=== PATIENT | male | born 1955 | race Hispanic/Latino ===

== ENCOUNTER 2017-02-16 08:57 | Emergency (ER) | payer OTHER ==
[2017-02-16 09:06] VITALS: BP 154/92; PULSE 74; RESP 16; TEMP 97.9; O2SAT 98; BMI 32.5
--- NOTE | 2017-02-16 10:10 | RAD ---
HISTORY: cough, chest pain COMPARISON: Chest x-ray performed 10/18/16 TECHNIQUE: Chest PA and lateral FINDINGS: LUNGS: Mild retrocardiac atelectasis ; infiltrate cannot be excluded in the proper clinical setting. Please note that chest x-ray has limited sensitivity for the detection of pulmonary masses. PLEURA: No significant pleural effusion identified. No definite pneumothorax . CARDIOVASCULAR: Heart size appears within normal limits. Atherosclerotic calcifications of the aorta. OSSEOUS STRUCTURES: No acute osseous abnormality identified. VISUALIZED UPPER ABDOMEN: Elevation of the right hemidiaphragm. OTHER FINDINGS: None. IMPRESSION: Mild retrocardiac atelectasis ; infiltrate cannot be excluded in the proper clinical setting. Correlate clinically.
--- NOTE | 2017-02-16 10:24 | C.PDOC ---
History Of Present Illness The patient, a 61 y/o male, presnets to the ED for evaluation of a nonproductive cough which has been persistent for around 2 weeks. Patient states his symptoms are worse at night and cause trouble sleeping. Patient is agitated and defensive, stating his PMD has not done anything to treat his symptoms. Patient reports night sweats and denies fever, chills, headache, nausea, vomiting, and abdominal pain. Time Seen by Provider: 02/16/17 09:26 Chief Complaint (Nursing): Cough, Cold, Congestion History Per: Patient History/Exam Limitations: no limitations Onset/Duration Of Symptoms: Persistent, Other (2 weeks ) Current Symptoms Are (Timing): Still Present Additional History Per: Patient Past Medical History Reviewed: Historical Data, Nursing Documentation, Vital Signs Vital Signs: Last Vital Signs Temp 97.9 F 02/16/17 09:06 Pulse 74 02/16/17 09:06 Resp 16 02/16/17 09:06 BP 154/92 H 02/16/17 09:06 Pulse Ox 98 02/16/17 12:01 - Medical History PMH: Gastritis, HTN Denies: Chronic Kidney Disease Surgical History: No Surg Hx - [facility] Procedures ENDOSC POLYPECTOMY OF LG INTEST (01/23/15) OTHER SKIN & SUBQ I D (08/05/13) Family History: States: Unknown Family Hx - Social History Hx Tobacco Use: No Hx Alcohol Use: Yes Hx Substance Use: No - Immunization History Hx Tetanus Toxoid Vaccination: No Hx Influenza Vaccination: Yes (not sure) Hx Pneumococcal Vaccination: Yes (not sure) Review Of Systems Except As Marked, All Systems Reviewed And Found Negative. Constitutional: Positive for: Sweats. Negative for: Fever, Chills Respiratory: Positive for: Cough. Negative for: Sputum Gastrointestinal: Negative for: Nausea, Vomiting, Abdominal Pain Neurological: Negative for: Headache Physical Exam - Physical Exam Appears: Non-toxic, No Acute Distress Skin: Normal Color, Warm, Dry Head: Atraumatic, Normacephalic Eye(s): bilateral: Normal Inspection Nose: Other (+congestion of upper airway ) Oral Mucosa: Moist Throat: Normal, No Erythema, No Exudate Neck: Supple Chest: Symmetrical, No Deformity, No Tenderness Cardiovascular: Rhythm Regular, No Murmur Respiratory: Normal Breath Sounds, No Rales, No Rhonchi, No Wheezing Back: Normal Inspection, No Vertebral Tenderness, No Paraspinal Tenderness Extremity: Normal ROM, Capillary Refill (less than 2 seconds ) Neurological/Psych: Oriented x3, Normal Speech, Normal Cognition Gait: Steady ED Course And Treatment O2 Sat by Pulse Oximetry: 98 (on RA) Pulse Ox Interpretation: Normal - Other Rad CXR X-Ray: Interpreted by Me, Viewed By Me, Read By Radiologist Interpretation: Accession No. : [id number]. Patient Name / ID : CHE CUMMINGS / [id number]. Exam Date : 02/16/2017 09:42:02 ( Approved ). Study Comment : Sex / Age : M / 61Y. Creator : Darline Morales MD. Dictator : Darline Morales MD. Medical Artist : Sourcing Analyst : Darline Morales MD. Approver2 : Report Date : 02/16/2017 10:08:54. My Comment : . HISTORY: cough, chest pain. COMPARISON: Chest x-ray performed 10/18/16. TECHNIQUE: Chest PA and lateral. FINDINGS: LUNGS: Mild retrocardiac atelectasis ; infiltrate cannot be excluded in the proper clinical setting. Please note that chest x-ray has limited sensitivity for the detection of pulmonary masses. PLEURA: No significant pleural effusion identified. No definite pneumothorax . CARDIOVASCULAR: Heart size appears within normal limits. Atherosclerotic calcifications of the aorta. OSSEOUS STRUCTURES: No acute osseous abnormality identified. VISUALIZED UPPER ABDOMEN: Elevation of the right hemidiaphragm. OTHER FINDINGS: None. IMPRESSION: Mild retrocardiac atelectasis ; infiltrate cannot be excluded in the proper clinical setting. Correlate clinically. Medical Decision Making Medical Decision Making: Impression: 61y/o male with cough Plan: * CXR * reassess and disposition Progress Notes: CXR ordered, review shows atelectasis but cannot r/o infiltrate. On reassessment, patient is resting comfortably, showing no signs of distress, and is stable for discharge. Patient is advised to follow up with his PMD within 1-2 days for further evaluation. Disposition Counseled Patient/Family Regarding: Studies Performed, Diagnosis, Need For Followup, Rx Given - Disposition Referrals: [facility] at [facility] [Outside] Disposition: HOME/ ROUTINE Disposition Time: 10:22 Condition: STABLE Prescriptions: Azithromycin 1 tab PO DAILY #6 tab Benzonatate [Tessalon Perles] 200 mg PO TID #18 sgl Instructions: Upper Respiratory Infection (ED), Acute Bronchitis (ED) Forms: Work Excuse - Clinical Impression Clinical Impression: Influenza-like illness, Bronchiolitis - Scribe Statement The provider has reviewed the documentation as recorded by the Scribe (Tracee Cardenas) Provider Attestation: All medical record entries made by the Scribe were at my direction and personally dictated by me. I have reviewed the chart and agree that the record accurately reflects my personal performance of the history, physical exam, medical decision making, and the department course for this patient. I have also personally directed, reviewed, and agree with the discharge instructions and disposition.
== END 2017-02-16 10:31 | disposition home or self-care (01) ==
LOC: C.ER 08:57
DX: J11.1 Influenza due to unidentified influenza virus with other respiratory manifestations (principal)

== ENCOUNTER 2017-05-03 11:01 | Emergency (ER) | payer OTHER ==
[2017-05-03 11:14] VITALS: BMI 25.7
[2017-05-03] MEDS ORDERED: Sodium Chloride 0.9% 500 ML IV ONE ×2 (11:42→11:57)
[2017-05-03] MEDS ORDERED: Aluminum Hydroxide/Magnesium Hydroxide Susp (30 mL) PO STA (11:48)
[2017-05-03] MEDS ORDERED: Aluminum Hydroxide/Magnesium Hydroxide Susp (30 mL) ONE (11:58)
[2017-05-03 12:01] LABS: BASO % 0.7 % (0.0-2.0); EOS # 0.2 K/uL (0.0-0.7); EOS % 2.3 % (0.0-4.0); HEMOGLOBIN 14.9 g/dL (12.0-18.0); LYMPH # 1.6 K/uL (1.0-4.3); LYMPH % 23.7 % (20.0-40.0); MEAN CELL VOLUME 89.7 fL (80.0-94.0); MEAN CORPUSCULAR HEMOGLOBIN 29.7 pg (27.0-31.0); MEAN CORPUSCULAR HGB CONC 33.2 g/dL (33.0-37.0); MEAN PLATELET VOLUME 8.8 fL (7.2-11.7); MONO # 0.5 K/uL (0.0-0.8); MONO % 7.1 % (0.0-10.0); NEUT # 4.6 K/uL (1.8-7.0); NEUT % 66.2 % (50.0-75.0); NRBC % 0.1 % (0.0-2.0); WHITE BLOOD COUNT 6.9 K/uL (4.8-10.8)
--- NOTE | 2017-05-03 12:01 | C.PDOC ---
History Of Present Illness 61-year-old male, denies significant PMHx, presents to the emergency department with complaints of abdominal pain. Patient states he has been experiencing epigastric abdominal pain that started one week ago. Pain is intermittent in nature, non-radiating and associated nausea. Patient denies sick contacts, vomiting, fevers, chills, shortness of breath, chest pain, dizziness, or any other associated symptoms. No other complaints at this time. Time Seen by Provider: 05/03/17 11:15 Chief Complaint (Nursing): Abdominal Pain History Per: Patient History/Exam Limitations: no limitations Onset/Duration Of Symptoms: Days (7) Current Symptoms Are (Timing): Still Present Severity: Moderate Location Of Pain/Discomfort: Epigastric Past Medical History Reviewed: Historical Data, Nursing Documentation, Vital Signs Vital Signs: Last Vital Signs Temp 97.8 F 05/03/17 12:43 Pulse 61 05/03/17 12:43 Resp 16 05/03/17 12:43 BP 146/83 05/03/17 12:43 Pulse Ox 98 05/03/17 12:43 - Medical History PMH: Gastritis, HTN Denies: Chronic Kidney Disease - [facility] Procedures ENDOSC POLYPECTOMY OF LG INTEST (01/23/15) OTHER SKIN & SUBQ I D (08/05/13) Family History: States: No Known Family Hx - Social History Hx Tobacco Use: No Hx Alcohol Use: Yes Hx Substance Use: No - Immunization History Hx Tetanus Toxoid Vaccination: No Hx Influenza Vaccination: Yes (not sure) Hx Pneumococcal Vaccination: Yes (not sure) Review Of Systems Except As Marked, All Systems Reviewed And Found Negative. Constitutional: Negative for: Fever, Chills Cardiovascular: Negative for: Chest Pain Respiratory: Negative for: Cough, Shortness of Breath Gastrointestinal: Positive for: Nausea, Abdominal Pain. Negative for: Vomiting , Diarrhea Musculoskeletal: Negative for: Back Pain Skin: Negative for: Rash Neurological: Negative for: Weakness, Numbness Physical Exam - Physical Exam Appears: Non-toxic, No Acute Distress Skin: Warm, Dry, No Rash Head: Atraumatic, Normacephalic Eye(s): bilateral: Normal Inspection, PERRL, EOMI Nose: Normal Oral Mucosa: Moist Lips: Normal Appearing Neck: Normal ROM Cardiovascular: Rhythm Regular Respiratory: Normal Breath Sounds, No Accessory Muscle Use Gastrointestinal/Abdominal: Soft, Tenderness (Mild, epigastric), Guarding (Mild) , No Rebound Extremity: Normal ROM Neurological/Psych: Oriented x3, Normal Speech ED Course And Treatment - Laboratory Results Result Diagrams: 05/03/17 11:56 05/03/17 11:56 O2 Sat by Pulse Oximetry: 96 Medical Decision Making Medical Decision Making: Impression 61 y/o M comes in w/ abdominal pain x7 days Diff Dx (includes but not limited to) Gastritis Plan: * CMP, Lipase * CBC * Maalox, Pepcid, IVF, Zofran * Reassess and Disposition After treatment patient felt much better. Abdomen soft and not tender. Labs reviewed and normal. Tolerating PO fluids. He will f/u with his PMD and also recommended GI followup. Disposition Counseled Patient/Family Regarding: Studies Performed, Diagnosis, Need For Followup, Rx Given - Disposition Disposition: HOME/ ROUTINE Disposition Time: 12:36 Condition: IMPROVED Prescriptions: Aluminum Hydroxide/Magnesium H [Maalox 30 ml] 30 ml PO Q8 #1 bottle Ranitidine HCl [Zantac] 150 mg PO BID PRN #30 tablet PRN Reason: Pain, Mild (1-3) Instructions: Abdominal Pain (ED) Forms: Gen Discharge Inst Mosotho Print Language: NICARAGUAN - POA Present On Arrival: None - Clinical Impression Clinical Impression: Abdominal pain, Gastritis - Scribe Statement The provider has reviewed the documentation as recorded by the Scribe (Maritza Hess) All medical record entries made by the Scribe were at my direction and personally dictated by me. I have reviewed the chart and agree that the record accurately reflects my personal performance of the history, physical exam, medical decision making, and the department course for this patient. I have also personally directed, reviewed, and agree with the discharge instructions and disposition.
[2017-05-03 12:14] LABS: ALB/GLOB RATIO 1.2 (1.0-2.1); ALT/SGPT 31 U/L (21-72); AST/SGOT 25 U/L (17-59); BLOOD UREA NITROGEN 16 mg/dL (9-20); GFR AFRICAN-AMERICAN > 60; GFR NON-AFRICAN AMERICAN > 60
[2017-05-03 12:15] LABS: CALCIUM 9.2 mg/dl (8.6-10.4); LIPASE 50 U/L (23-300)
[2017-05-03 12:44] VITALS: BP 146/83; PULSE 61; RESP 16; TEMP 97.8
[2017-05-03 14:57] VITALS: O2SAT 96
== END 2017-05-03 12:53 | disposition home or self-care (01) ==
LOC: C.ER 11:01
DX: K29.70 Gastritis, unspecified, without bleeding (principal); R10.13 Epigastric pain
CPT/HCPCS: 80053; 83690; 85025; 96361; 96374; 96375; 99284; J2405; J7040

== ENCOUNTER 2017-05-16 14:24 | Emergency (ER) | payer OTHER ==
[2017-05-16 14:25] VITALS: BMI 25.7
[2017-05-16] MEDS ORDERED: Iohexol 240 (50 ml) PO STA (15:02)
[2017-05-16] MEDS ORDERED: Iohexol 240 (50 ml) ONE (15:15)
[2017-05-16 15:40] LABS: BASO % 0.6 % (0.0-2.0); EOS # 0.2 K/uL (0.0-0.7); EOS % 2.8 % (0.0-4.0); HEMOGLOBIN 14.8 g/dL (12.0-18.0); MEAN CELL VOLUME 88.8 fL (80.0-94.0); MEAN CORPUSCULAR HEMOGLOBIN 30.1 pg (27.0-31.0); MEAN CORPUSCULAR HGB CONC 33.9 g/dL (33.0-37.0); MEAN PLATELET VOLUME 8.2 fL (7.2-11.7); MONO # 0.5 K/uL (0.0-0.8); MONO % 7.4 % (0.0-10.0); NEUT # 4.3 K/uL (1.8-7.0); NEUT % 61.2 % (50.0-75.0); RBC 4.91 Mil/uL (4.40-5.90); RED CELL DISTRIBUTION WIDTH 13.6 % (11.5-14.5); WHITE BLOOD COUNT 7.1 K/uL (4.8-10.8)
[2017-05-16 15:49] LABS: URINE BILIRUBIN NEGATIVE (NEGATIVE); URINE BLOOD NEGATIVE (NEGATIVE); URINE CLARITY Clear (Clear); URINE COLOR Yellow (YELLOW); URINE GLUCOSE (UA) NORMAL (Normal); URINE LEUKOCYTE ESTERASE NEG Leu/uL (Negative); URINE NITRATE NEGATIVE (NEGATIVE); URINE PROTEIN NEGATIVE (NEGATIVE); URINE UROBILINOGEN NORMAL mg/dL (0.2-1.0)
[2017-05-16 15:51] LABS: BARBITURATES, UR NEGATIVE (NEGATIVE)
[2017-05-16 15:52] LABS: BENZODIAZEPINES, UR NEGATIVE (NEGATIVE)
[2017-05-16 15:54] LABS: OPIATES, UR NEGATIVE (NEGATIVE)
[2017-05-16 15:55] LABS: PHENCYCLIDINE, UR NEGATIVE (NEGATIVE)
[2017-05-16 15:59] LABS: ALB/GLOB RATIO 1.2 (1.0-2.1); ALT/SGPT 26 U/L (21-72); AST/SGOT 56 U/L (17-59); BLOOD UREA NITROGEN 14 mg/dL (9-20); GFR AFRICAN-AMERICAN > 60; GFR NON-AFRICAN AMERICAN > 60; LIPASE 49 U/L (23-300)
[2017-05-16 16:00] LABS: CALCIUM 8.7 mg/dl (8.6-10.4)
[2017-05-16] MEDS ORDERED: Iohexol 300 100 ML IJ ONE (16:24)
--- NOTE | 2017-05-16 16:56 | C.PDOC ---
History Of Present Illness 61 y/o male presents to ED sent by Dr. Hillman for evaluation of chronic abdominal pain worsen for 2 weeks. Patient reports associated nausea and vomiting and admits to drinking ETOH every week but denies drinking today. Patient has multiple previous visits to ED for evaluation on ETOH pancreatitis. Patient denies diarrhea, fever, chills, chest pain or any other complaints at this time. Time Seen by Provider: 05/16/17 14:50 Chief Complaint (Nursing): Abdominal Pain History Per: Patient History/Exam Limitations: no limitations Onset/Duration Of Symptoms: Days Current Symptoms Are (Timing): Still Present Past Medical History Reviewed: Historical Data, Nursing Documentation, Vital Signs Vital Signs: Last Vital Signs Temp 97.8 F 05/16/17 14:31 Pulse 69 05/16/17 14:31 Resp 20 05/16/17 14:31 BP 125/79 05/16/17 14:31 Pulse Ox 95 05/16/17 16:58 - Medical History PMH: Gastritis, HTN - [facility] Procedures ENDOSC POLYPECTOMY OF LG INTEST (01/23/15) OTHER SKIN & SUBQ I D (08/05/13) Family History: States: No Known Family Hx - Social History Hx Tobacco Use: No Hx Alcohol Use: Yes Hx Substance Use: No - Immunization History Hx Tetanus Toxoid Vaccination: No Hx Influenza Vaccination: Yes (not sure) Hx Pneumococcal Vaccination: Yes (not sure) Review Of Systems Except As Marked, All Systems Reviewed And Found Negative. Constitutional: Negative for: Fever, Chills Cardiovascular: Negative for: Chest Pain Gastrointestinal: Positive for: Abdominal Pain. Negative for: Nausea, Vomiting , Diarrhea Skin: Negative for: Rash Physical Exam - Physical Exam Appears: Non-toxic, No Acute Distress Head: Atraumatic, Normacephalic Oral Mucosa: Moist Chest: Symmetrical Cardiovascular: Rhythm Regular, No Murmur Respiratory: Normal Breath Sounds, No Rales, No Rhonchi, No Wheezing Extremity: Normal ROM, Capillary Refill (<2 seconds) Neurological/Psych: Oriented x3 ED Course And Treatment - Laboratory Results Result Diagrams: 05/16/17 15:35 05/16/17 15:35 Lab Interpretation: Normal (lipase neg.) O2 Sat by Pulse Oximetry: 95 (RA) Reevaluation Time: 17:39 Reassessment Condition: Unchanged (remains asymptomatic) Medical Decision Making Medical Decision Making: vague chronic abd pains ? related to pancreatitis or alcholic gastris, though pt claims to no longer be abusing alcohol All normal labs and CT abd/Pelvis d/w lola Lima to f/u as opt. Disposition Doctor Will See Patient In The: Office Counseled Patient/Family Regarding: Studies Performed, Diagnosis - Disposition Disposition: HOME/ ROUTINE Disposition Time: 17:40 Condition: GOOD Forms: [facility] (Uzbek) - Clinical Impression Clinical Impression: Abdominal discomfort - Scribe Statement The provider has reviewed the documentation as recorded by the Nikkyibandreas Zepeda All medical record entries made by the Nikkyibandreas were at my direction and personally dictated by me. I have reviewed the chart and agree that the record accurately reflects my personal performance of the history, physical exam, medical decision making, and the department course for this patient. I have also personally directed, reviewed, and agree with the discharge instructions and disposition.
--- NOTE | 2017-05-16 17:14 | CT ---
PROCEDURE: CT Abdomen and Pelvis with contrast HISTORY: chronic abd pain, alcoholic COMPARISON: 03/01/2013 TECHNIQUE: Contrast dose: 100 cc of Omni 300 Radiation dose: Total exam DLP = 663 mGy-cm. This CT exam was performed using one or more of the following dose reduction techniques: Automated exposure control, adjustment of the mA and/or kV according to patient size, and/or use of iterative reconstruction technique. FINDINGS: LOWER THORAX: Unremarkable. LIVER: Unremarkable. No gross lesion or ductal dilatation. There are some calcifications in the right lobe of the liver. These are of doubtful significance. GALLBLADDER AND BILE DUCTS: Unremarkable. PANCREAS: Unremarkable. No gross lesion or ductal dilatation. SPLEEN: Unremarkable. ADRENALS: Unremarkable. No mass. KIDNEYS AND URETERS: Unremarkable. No hydronephrosis. No solid mass. VASCULATURE: Unremarkable. No aortic aneurysm. BOWEL: Unremarkable. No obstruction. No gross mural thickening. APPENDIX: Normal appendix. PERITONEUM: Unremarkable. No free fluid. No free air. LYMPH NODES: Unremarkable. No enlarged lymph nodes. BLADDER: Unremarkable. REPRODUCTIVE: Unremarkable. BONES: There is disc degeneration at L5-S1 OTHER FINDINGS: None. IMPRESSION: Unremarkable contrast enhanced CT of the abdomen and pelvis.
[2017-05-16 18:07] VITALS: BP 120/81; PULSE 65; RESP 16; TEMP 98.4; O2SAT 97
== END 2017-05-16 18:08 | disposition home or self-care (01) ==
LOC: C.ER 14:24
DX: R10.9 Unspecified abdominal pain (principal)
CPT/HCPCS: 74177; 80053; 80320; 80324; 80345; 80346; 80349; 80353; 80358; 80361; 81001; 83690; 83992; 85025; 99284; Q9966; Q9967

== ENCOUNTER 2017-10-08 16:59 | Emergency (ER) | payer OTHER ==
[2017-10-08 16:59] VITALS: BMI 25.7
[2017-10-08 17:11] VITALS: BP 128/79; PULSE 75; RESP 16; TEMP 98; O2SAT 96
--- NOTE | 2017-10-08 17:28 | C.PDOC ---
History Of Present Illness INTERMIT GEN WEAKNESS X 2 YEARS, WORSE TODAY. B/L CP INTERMIT X 2 YEARS. multiple previous visits to ED for evaluation on ETOH pancreatitis. DENIES OTHER ASSOC SX. DENIES ETOH TODAY. EXAM NEG Time Seen by Provider: 10/08/17 17:27 Chief Complaint (Nursing): Palpitations History Per: Patient History/Exam Limitations: no limitations Onset/Duration Of Symptoms: Hrs Current Symptoms Are (Timing): Still Present Severity: Moderate Past Medical History Reviewed: Historical Data, Nursing Documentation, Vital Signs Vital Signs: Last Vital Signs Temp 98 F 10/08/17 17:08 Pulse 75 10/08/17 17:08 Resp 16 10/08/17 17:08 BP 128/79 10/08/17 17:08 Pulse Ox 96 10/08/17 18:21 - Medical History PMH: Gastritis, HTN Denies: Chronic Kidney Disease Surgical History: No Surg Hx - [facility] Procedures ENDOSC POLYPECTOMY OF LG INTEST (01/23/15) OTHER SKIN & SUBQ I D (08/05/13) Family History: States: No Known Family Hx - Social History Hx Tobacco Use: No Hx Alcohol Use: Yes Hx Substance Use: No - Immunization History Hx Tetanus Toxoid Vaccination: No Hx Influenza Vaccination: Yes (not sure) Hx Pneumococcal Vaccination: Yes (not sure) Review Of Systems Except As Marked, All Systems Reviewed And Found Negative. Constitutional: Positive for: Weakness (generalized weakness). Negative for: Fever, Chills Cardiovascular: Positive for: Chest Pain, Palpitations Gastrointestinal: Negative for: Nausea, Vomiting Neurological: Negative for: Numbness, Dizziness Physical Exam - Physical Exam Appears: Non-toxic, No Acute Distress Skin: Normal Color, Warm Head: Atraumatic, Normacephalic Eye(s): bilateral: Normal Inspection Nose: Normal Oral Mucosa: Moist Neck: Normal ROM, Supple Chest: Symmetrical Cardiovascular: Rhythm Regular Respiratory: Normal Breath Sounds, No Accessory Muscle Use Extremity: Normal ROM Neurological/Psych: Oriented x3, Normal Speech, Normal Motor, Normal Sensation ED Course And Treatment - Laboratory Results Result Diagrams: 10/08/17 17:48 10/08/17 17:48 ECG: Interpreted By Co ECG Rhythm: Sinus Rhythm, R BBB ECG Interpretation: Normal Rate From EC O2 Sat by Pulse Oximetry: 96 (RA) Pulse Ox Interpretation: Normal - Radiology CXR: Interpreted by Me CXR Interpretation: Yes: No Acute Disease Progress - Re-Evaluation Re-evaluation Note: 10/08/17 18:16 NO ACUTE FINDINGS. PT ADVISED FU PMD - Data Reviewed Data Reviewed: Lab, Diagnostic imaging, EKG, Old records Medical Decision Making Medical Decision Making: Plan: --ECG --Labs Disposition Counseled Patient/Family Regarding: Studies Performed, Diagnosis, Need For Followup - Disposition Referrals: [facility] [Outside] [facility] [Outside] Disposition: HOME/ ROUTINE Disposition Time: 18:17 Condition: GOOD Additional Instructions: YOUR TESTS ARE NORMAL. FOLLOW UP IN CLINIC FOR FURTHER EVALUATION. Instructions: Weakness (ED) Forms: [facility] (Citizen Of [place]) - Clinical Impression Clinical Impression: Chronic malaise - Scribe Statement The provider has reviewed the documentation as recorded by the Gianluca Contreras Provider Attestation: All medical record entries made by the Nikkyibandreas were at my direction and personally dictated by me. I have reviewed the chart and agree that the record accurately reflects my personal performance of the history, physical exam, medical decision making, and the department course for this patient. I have also personally directed, reviewed, and agree with the discharge instructions and disposition.
[2017-10-08 17:54] LABS: BASO # 0.1 K/uL (0.0-0.2); BASO % 0.8 % (0.0-2.0); EOS # 0.7 K/uL (0.0-0.7); EOS % 7.8 % (0.0-4.0); LYMPH # 2.2 K/uL (1.0-4.3); LYMPH % 25.8 % (20.0-40.0); MEAN CELL VOLUME 89.2 fL (80.0-94.0); MEAN CORPUSCULAR HEMOGLOBIN 31.3 pg (27.0-31.0); MEAN CORPUSCULAR HGB CONC 35.1 g/dL (33.0-37.0); MEAN PLATELET VOLUME 8.2 fL (7.2-11.7); MONO # 0.6 K/uL (0.0-0.8); MONO % 7.1 % (0.0-10.0); NRBC % 0.1 % (0.0-2.0); RED CELL DISTRIBUTION WIDTH 13.7 % (11.5-14.5); WHITE BLOOD COUNT 8.6 K/uL (4.8-10.8)
[2017-10-08 18:03] LABS: ALB/GLOB RATIO 1.3 (1.0-2.1); ALKALINE PHOSPHATASE 70 U/L (38-126); ALT/SGPT 28 U/L (21-72); AST/SGOT 26 U/L (17-59); BILIRUBIN,TOTAL 0.7 mg/dL (0.2-1.3); BLOOD UREA NITROGEN 22 mg/dL (9-20); CALCIUM 8.7 mg/dl (8.6-10.4); CARBON DIOXIDE 26 mmol/L (22-30); CHLORIDE 102 mmol/L (98-107); GFR AFRICAN-AMERICAN > 60; GLUCOSE,RANDOM 99 mg/dL (75-110); SODIUM 135 mmol/L (132-148); TOTAL PROTEIN 6.9 g/dL (6.3-8.3)
--- NOTE | 2017-10-09 09:01 | RAD ---
PROCEDURE: CHEST RADIOGRAPH, 1 VIEW HISTORY: Chest pain COMPARISON: 02/16/2017. FINDINGS: LUNGS: The lungs are clear. PLEURA: No pneumothorax or pleural fluid seen. CARDIOVASCULAR: Normal. OSSEOUS STRUCTURES: No significant abnormalities. VISUALIZED UPPER ABDOMEN: Normal. OTHER FINDINGS: None. IMPRESSION: No active pulmonary disease.
--- NOTE | 2017-10-11 12:18 | CARD ---
APPROVED REPORT EKG Measurement Heart [id number] <Conclusion> Normal sinus rhythm Right bundle branch block Abnormal ECG
== END 2017-10-08 18:21 | disposition home or self-care (01) ==
LOC: C.ER 16:59
DX: R53.81 Other malaise (principal); I10 Essential (primary) hypertension

== ENCOUNTER 2018-01-29 12:09 | Emergency (ER) | payer OTHER ==
[2018-01-29 12:09] VITALS: BMI 25.7
[2018-01-29 12:19] VITALS: RESP 20; TEMP 97.8
[2018-01-29 13:11] VITALS: BP 129/84; PULSE 76; O2SAT 96
--- NOTE | 2018-01-29 14:12 | RAD ---
HISTORY: cough r/o infiltrate COMPARISON: Comparison is made to 10/08/2017 TECHNIQUE: Chest PA and lateral FINDINGS: LUNGS: No active pulmonary disease. PLEURA: No significant pleural effusion identified. No pneumothorax apparent. CARDIOVASCULAR: Normal. OSSEOUS STRUCTURES: No significant abnormalities. VISUALIZED UPPER ABDOMEN: Normal. OTHER FINDINGS: None. IMPRESSION: No active disease.
--- NOTE | 2018-01-29 14:13 | C.PDOC ---
History Of Present Illness 62 year old male presents to the emergency department with complaints of a cough for the past eight days. Patient denies sputum, fever, recent travel, or sick contact. Chief Complaint (Nursing): Back Pain History Per: Patient History/Exam Limitations: no limitations Onset/Duration Of Symptoms: Days (8) Current Symptoms Are (Timing): Still Present Recent travel outside of the [place]: No Additional History: No sick contact. Additional History Per: Patient Past Medical History Reviewed: Historical Data, Nursing Documentation, Vital Signs Vital Signs: Last Vital Signs Temp 97.8 F 01/29/18 12:15 Pulse 76 01/29/18 13:10 Resp 20 01/29/18 13:10 BP 129/84 01/29/18 13:10 Pulse Ox 96 01/29/18 14:15 - Medical History PMH: Gastritis, HTN Denies: Chronic Kidney Disease Surgical History: No Surg Hx - [facility] Procedures ENDOSC POLYPECTOMY OF LG INTEST (01/23/15) OTHER SKIN & SUBQ I D (08/05/13) Family History: States: No Known Family Hx - Social History Hx Tobacco Use: No Hx Alcohol Use: Yes Hx Substance Use: No - Immunization History Hx Tetanus Toxoid Vaccination: No Hx Influenza Vaccination: Yes (not sure) Hx Pneumococcal Vaccination: Yes (not sure) Review Of Systems Except As Marked, All Systems Reviewed And Found Negative. Constitutional: Negative for: Fever Respiratory: Positive for: Cough. Negative for: Sputum Physical Exam - Physical Exam Cardiovascular: Rhythm Regular Respiratory: Normal Breath Sounds Gastrointestinal/Abdominal: Normal Exam, Soft, No Tenderness Extremity: Normal ROM ED Course And Treatment O2 Sat by Pulse Oximetry: 96 (RA) Pulse Ox Interpretation: Normal - Radiology CXR: Viewed By Me, Read By Radiologist Medical Decision Making Medical Decision Making: Plan: CXR Two-Views CXR Impression: No active disease. Disposition - Disposition Referrals: Jhon Hillman MD [Staff Provider] - Disposition: HOME/ ROUTINE Disposition Time: 12:40 Condition: GOOD Additional Instructions: Thank you for letting us take care of you today. The emergency medical care you received today was directed at your acute symptoms. If you were prescribed any medication, please fill it and take as directed. It may take several days for your symptoms to resolve. Return to the Emergency Department if your symptoms worsen, do not improve, or if you have any other problems. Please contact your doctor or call one of the physicians/clinics you have been referred to that are listed on the Patient Visit Information form that is included in your discharge packet. Bring any paperwork you were given at discharge with you along with any medications you are taking to your follow up visit. Our treatment cannot replace ongoing medical care by a primary care provider (PCP) outside of the emergency department. Thank you for allowing the [facility] team to be part of your care today. Follow up with your primary care doctor in 2-3 days for re-evaluation and further management. Alethea por dejarnos atenderlo hoy. La atencin mdica de emergencia que recibi hoy estaba dirigida a she sntomas agudos. Si le prescribieron algn medicamento, llnelo y tome segn las indicaciones. She sntomas pueden tardar varios torres en resolverse. Regrese al Departamento de Emergencia si she s ntomas empeoran, no mejoran o si tiene algn otro problema. Comunquese con burgos mdico o llame a jean-claude de los mdicos / clnicas a los que adorno sido referido que figura en el formulario de Informacin de visita del paciente que se incluye en burgos paquete de laila. Traiga todos los documentos que recibi al momento del laila junto con los medicamentos que est tomando en burgos visita de seguimiento. Nuestro tratamiento no puede reemplazar la atencin mdica en curso por parte de un proveedor de atencin primaria (PCP) fuera del departamento de emergencias. Alethea por permitir que el equipo de [facility] sea parte de burgos cuidado hoy. [place] un seguimiento con burgos mdico de atencin primaria en 2-3 torres para pili nueva evaluacin y administracin adicional. Prescriptions: Azithromycin [Zithromax] 250 mg PO DAILY #6 tab Instructions: Acute Bronchitis, Adult (DC) Forms: Gen Discharge Inst Moroccan Print Language: GREENLANDIC - Clinical Impression Clinical Impression: Low back pain - Scribe Statement The provider has reviewed the documentation as recorded by the Scribe (Jose R Guzman) Provider Attestation: All medical record entries made by the Scribe were at my direction and personally dictated by me. I have reviewed the chart and agree that the record accurately reflects my personal performance of the history, physical exam, medical decision making, and the department course for this patient. I have also personally directed, reviewed, and agree with the discharge instructions and disposition.
== END 2018-01-29 13:11 | disposition home or self-care (01) ==
LOC: C.ER 12:09
DX: M54.5 Low back pain (principal); I10 Essential (primary) hypertension

== ENCOUNTER 2018-02-12 16:21 | Emergency (ER) | payer OTHER ==
[2018-02-12 16:21] VITALS: BMI 25.7
[2018-02-12 16:42] VITALS: PULSE 87; RESP 20; TEMP 97.9; O2SAT 95
--- NOTE | 2018-02-12 17:34 | C.PDOC ---
History Of Present Illness 62-year-old male, presents to the emergency department with complaints of one- month duration of cough associated with shortness of breath and chest pain with cough and back pain. Patient seen in ED on 01/29 for same complaint and was discharged for outpatient f/u. Patient returns today because symptoms continue. Denies fever or chills. Pain is present only with movement and cough. Time Seen by Provider: 02/12/18 16:46 Chief Complaint (Nursing): Back Pain History Per: Patient History/Exam Limitations: no limitations Past Medical History Reviewed: Historical Data, Nursing Documentation, Vital Signs Vital Signs: Last Vital Signs Temp 97.9 F 02/12/18 16:27 Pulse 87 02/12/18 16:27 Resp 20 02/12/18 16:27 BP 130/80 02/12/18 18:52 Pulse Ox 95 02/13/18 17:12 - Medical History PMH: Gastritis, HTN Denies: Chronic Kidney Disease - [facility] Procedures ENDOSC POLYPECTOMY OF LG INTEST (01/23/15) OTHER SKIN & SUBQ I D (08/05/13) Family History: States: No Known Family Hx - Social History Hx Tobacco Use: No Hx Alcohol Use: Yes Hx Substance Use: No - Immunization History Hx Tetanus Toxoid Vaccination: No Hx Influenza Vaccination: No Hx Pneumococcal Vaccination: No Review Of Systems Constitutional: Negative for: Fever Cardiovascular: Negative for: Chest Pain, Palpitations Respiratory: Positive for: Cough, Shortness of Breath, Pleuritic Pain. Negative for: Sputum Gastrointestinal: Negative for: Vomiting Musculoskeletal: Positive for: Back Pain Physical Exam - Physical Exam Appears: Well, Non-toxic, No Acute Distress Skin: Normal Color, Warm, Dry, No Rash Head: Normacephalic Eye(s): bilateral: PERRL Nose: Normal Oral Mucosa: Moist Lips: Normal Appearing Neck: Normal ROM Chest: Symmetrical Cardiovascular: Rhythm Regular, No Murmur Respiratory: Normal Breath Sounds, No Accessory Muscle Use Gastrointestinal/Abdominal: Normal Exam, Bowel Sounds, Soft Back: Other (parathoracic tenderness, right) Extremity: Normal ROM, No Deformity, No Swelling Neurological/Psych: Oriented x3, Normal Speech ED Course And Treatment - Laboratory Results Result Diagrams: 02/12/18 17:39 02/12/18 17:39 O2 Sat by Pulse Oximetry: 95 (RA) Pulse Ox Interpretation: Normal Medical Decision Making Medical Decision Making: Plan * EKG * Bloodwork * Chest X-Ray * Toradol * Reassess and Disposition * * ekg - nsr at rate of 62 bpm with left atrial enlargement, incompleter rbbb. * * patient states improvement. BP 130/83 right arm and 130/80 left arm * will discharge home to follow up with pmd in 2 days Disposition Counseled Patient/Family Regarding: Studies Performed, Diagnosis, Need For Followup, Rx Given - Disposition Referrals: Jhon Hillman MD [Staff Provider] - Disposition: HOME/ ROUTINE Disposition Time: 18:52 Condition: IMPROVED Additional Instructions: follow up with your doctor in 2 days call to make an appointment take medications as prescribed return to ER if symptoms worsens or progress Prescriptions: Acetaminophen/Codeine [Tylenol/Codeine 300 MG/30 MG] 1 tab PO Q6H PRN #12 tab PRN Reason: Pain, Severe (8-10) Naproxen [Naprosyn] 500 mg PO BID PRN #16 tab PRN Reason: Pain, Moderate (4-7) Instructions: Muscle and Bone Pain (DC) Forms: Gen Discharge Inst Chadian, Immun[employer] (Chadian), Work Excuse Print Language: PORTUGUESE - Clinical Impression Clinical Impression: Musculoskeletal back pain - Scribe Statement The provider has reviewed the documentation as recorded by the Scribe (Maritza Hess) Provider Attestation: All medical record entries made by the Scribe were at my direction and personally dictated by me. I have reviewed the chart and agree that the record accurately reflects my personal performance of the history, physical exam, medical decision making, and the department course for this patient. I have also personally directed, reviewed, and agree with the discharge instructions and disposition.
[2018-02-12 17:42] LABS: BASO # 0.1 K/uL (0.0-0.2); BASO % 0.6 % (0.0-2.0); EOS # 0.2 K/uL (0.0-0.7); EOS % 2.3 % (0.0-4.0); HEMOGLOBIN 14.6 g/dL (12.0-18.0); LYMPH # 2.2 K/uL (1.0-4.3); LYMPH % 27.4 % (20.0-40.0); MEAN CORPUSCULAR HEMOGLOBIN 31.2 pg (27.0-31.0); MEAN PLATELET VOLUME 8.2 fL (7.2-11.7); MONO # 0.5 K/uL (0.0-0.8); MONO % 6.4 % (0.0-10.0); NEUT % 63.3 % (50.0-75.0); RBC 4.68 Mil/uL (4.40-5.90); RED CELL DISTRIBUTION WIDTH 13.6 % (11.5-14.5); WHITE BLOOD COUNT 7.8 K/uL (4.8-10.8)
--- NOTE | 2018-02-12 17:53 | RAD ---
HISTORY: Chest pain. COMPARISON: Comparison chest 01/29/2018. TECHNIQUE: Chest PA and lateral FINDINGS: LUNGS: No acute infiltrates. Persistent slight tenting left hemidiaphragm. PLEURA: No significant pleural effusion identified. No pneumothorax apparent. CARDIOVASCULAR: Normal. OSSEOUS STRUCTURES: Minor multilevel degenerative spondylosis of the thoracic spine. VISUALIZED UPPER ABDOMEN: Normal. OTHER FINDINGS: None. IMPRESSION: No acute infiltrates.
[2018-02-12 17:59] LABS: ALB/GLOB RATIO 1.2 (1.0-2.1); ALBUMIN 4.2 g/dL (3.5-5.0); ALT/SGPT 25 U/L (21-72); AST/SGOT 29 U/L (17-59); BLOOD UREA NITROGEN 16 mg/dL (9-20); CALCIUM 9.5 mg/dl (8.6-10.4); GFR AFRICAN-AMERICAN > 60; GFR NON-AFRICAN AMERICAN > 60
[2018-02-12 18:52] VITALS: BP 130/80
--- NOTE | 2018-02-15 08:33 | CARD ---
APPROVED REPORT EKG Measurement Heart [id number] <Conclusion> Normal sinus rhythm Possible Left atrial enlargement Incomplete right bundle branch block Borderline ECG
== END 2018-02-12 19:09 | disposition home or self-care (01) ==
LOC: C.ER 16:21
DX: M54.9 Dorsalgia, unspecified (principal)
CPT/HCPCS: 71046; 80053; 82550; 83880; 84484; 85025; 85378; 93005; 96374; 99284; J1885

== ENCOUNTER 2018-03-11 09:44 | Emergency (ER) | payer OTHER ==
[2018-03-11 09:45] VITALS: BMI 25.7
[2018-03-11 09:56] VITALS: BP 136/79; PULSE 99; RESP 20; TEMP 99.8; O2SAT 96
--- NOTE | 2018-03-11 10:27 | C.PDOC ---
History Of Present Illness VIA TRANS CO PERSIST COUGH SINCE 01/29. SEEN 01/29 AND 02/12 FOR SAME SP AZITHROMYCIN 01/29. PS COMPLETED ABX PRESCRIBED. COUGH WORSE AT NIGHT. NO ASSOC MORRIS, CP. SUBJ FEVER CHILLS. HO SMOKING BUT QUIT "MANY YEARS AGO" ALSO CO L EAR DISCOMFORT X 2-3 WEEKS. NO DC, HEARING LOSS. EXAM NARD NONTOXIC HEENT B/L TM CLEAR INTACT NO ERYTHEMA, WNL; PHARYNX NEG; NOSE CLEAR LUNGS CTA B/L NO W/R/R NO RETRACTIONS SPEAKING FUL LSENTENCES NO EDEMA REMAINDE RNEG Time Seen by Provider: 03/11/18 10:26 Chief Complaint (Nursing): ENT Problem History Per: Patient History/Exam Limitations: no limitations Onset/Duration Of Symptoms: Days Current Symptoms Are (Timing): Still Present Location Of Pain: Ear(s) (Left ear discomfort ), Throat Past Medical History Reviewed: Historical Data, Nursing Documentation, Vital Signs Vital Signs: Last Vital Signs Temp 99.8 F H 03/11/18 09:54 Pulse 99 H 03/11/18 09:54 Resp 20 03/11/18 09:54 BP 136/79 03/11/18 09:54 Pulse Ox 96 03/11/18 11:26 - Medical History PMH: Gastritis, HTN (denies) Denies: Chronic Kidney Disease Surgical History: No Surg Hx - [facility] Procedures ENDOSC POLYPECTOMY OF LG INTEST (01/23/15) OTHER SKIN & SUBQ I D (08/05/13) Family History: States: No Known Family Hx - Social History Hx Tobacco Use: No Hx Alcohol Use: Yes Hx Substance Use: No - Immunization History Hx Tetanus Toxoid Vaccination: No Hx Influenza Vaccination: No Hx Pneumococcal Vaccination: No Review Of Systems Except As Marked, All Systems Reviewed And Found Negative. Constitutional: Positive for: Fever, Chills ENT: Positive for: Ear Pain (Left ear). Negative for: Ear Discharge, Other ( Hearing loss) Cardiovascular: Negative for: Chest Pain Respiratory: Positive for: Cough. Negative for: Other (dyspnea on exertion ) Physical Exam - Physical Exam Appears: Non-toxic, Other (NARD) Skin: Normal Color, Warm, Dry Head: Atraumatic Eye(s): bilateral: Normal Inspection Ear(s): Bilateral: Normal (Clear, no erythema) Nose: Normal Oral Mucosa: Moist Throat: Other (Pharynx negative) Respiratory: Other (NARD, Lungs CTA B/L, NO W/R/R, no retractions ) Extremity: No Pedal Edema Neurological/Psych: Oriented x3, Normal Speech (Speaking full sentences ) ED Course And Treatment - Laboratory Results Result Diagrams: 03/11/18 10:32 O2 Sat by Pulse Oximetry: 96 (RA) Pulse Ox Interpretation: Normal Medical Decision Making Medical Decision Making: Plan: CBC CXR Disposition Counseled Patient/Family Regarding: Studies Performed, Diagnosis, Need For Followup, Rx Given - Disposition Referrals: [facility] [Outside] [facility] [Outside] [facility] [Other] Disposition: HOME/ ROUTINE Disposition Time: 10:47 Condition: GOOD Additional Instructions: SIGA CON RAMOS PMD ESTA SEMANA SI SIENTA SNTOMAS PERSISTENTES. Prescriptions: Benzonatate [Tessalon Perles] 200 mg PO TID PRN #15 sgl PRN Reason: Cough levoFLOXacin [Levaquin] 750 mg PO DAILY #5 tab Instructions: Cough, Adult (DC) Forms: [employer] (Czech) Print Language: AZERI - Clinical Impression Clinical Impression: Chronic cough - Scribe Statement The provider has reviewed the documentation as recorded by the Scribe (Brooklyn Lam) Provider Attestation: All medical record entries made by the Scribe were at my direction and personally dictated by me. I have reviewed the chart and agree that the record accurately reflects my personal performance of the history, physical exam, medical decision making, and the department course for this patient. I have also personally directed, reviewed, and agree with the discharge instructions and disposition.
[2018-03-11 10:35] LABS: HEMOGLOBIN 13.4 g/dL (12.0-18.0); MEAN CELL VOLUME 89.5 fL (80.0-94.0); MEAN CORPUSCULAR HEMOGLOBIN 31.3 pg (27.0-31.0); MEAN CORPUSCULAR HGB CONC 34.9 g/dL (33.0-37.0); MEAN PLATELET VOLUME 7.9 fL (7.2-11.7); RBC 4.29 Mil/uL (4.40-5.90); RED CELL DISTRIBUTION WIDTH 13.1 % (11.5-14.5); WHITE BLOOD COUNT 12.6 K/uL (4.8-10.8)
--- NOTE | 2018-03-11 12:23 | RAD ---
HISTORY: fever cough COMPARISON: Chest radiographs 02/12/2018. TECHNIQUE: Chest PA and lateral FINDINGS: LUNGS: No active pulmonary disease. PLEURA: No significant pleural effusion identified. No pneumothorax apparent. CARDIOVASCULAR: Normal. OSSEOUS STRUCTURES: No significant abnormalities. VISUALIZED UPPER ABDOMEN: Normal. OTHER FINDINGS: None. IMPRESSION: No interval acute cardiopulmonary disease appreciated.
== END 2018-03-11 11:00 | disposition home or self-care (01) ==
LOC: C.ER 09:44
DX: R05 Cough (principal)

== ENCOUNTER 2018-07-10 09:02 | Emergency (ER) | payer OTHER ==
[2018-07-10 09:02] VITALS: BMI 25.7
[2018-07-10 09:17] VITALS: RESP 16; O2SAT 99
[2018-07-10 10:09] VITALS: BP 132/81; PULSE 60; TEMP 97.6
--- NOTE | 2018-07-10 10:21 | C.PDOC ---
History Of Present Illness 63 y/o male, otherwise well, presents to the ED with itching to his face and hands since yesterday after cleaning weeds from the yard. Patient reports known poison yana in the area. States the same thing happened last week, this time symptoms appear worse. Patient was not wearing gloves, only a long sleeve shirt. Otherwise he denies associated difficulty breathing or sensation of swelling to lips/mouth. 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 No headache, fever, chills, nausea, or vomiting. Time Seen by Provider: 07/10/18 09:39 Chief Complaint (Nursing): Abnormal Skin Integrity History Per: Patient History/Exam Limitations: no limitations Onset/Duration Of Symptoms: Days Current Symptoms Are (Timing): Still Present Past Medical History Reviewed: Historical Data, Nursing Documentation, Vital Signs Vital Signs: Last Vital Signs Temp 97.6 F 07/10/18 10:08 Pulse 60 07/10/18 10:08 Resp 16 07/10/18 10:08 BP 132/81 07/10/18 10:08 Pulse Ox 99 07/10/18 10:52 - Medical History PMH: Gastritis, HTN (denies) Denies: Chronic Kidney Disease - [facility] Procedures ENDOSC POLYPECTOMY OF LG INTEST (01/23/15) OTHER SKIN & SUBQ I D (08/05/13) Family History: States: No Known Family Hx - Social History Hx Tobacco Use: No Hx Alcohol Use: Yes Hx Substance Use: No - Immunization History Hx Tetanus Toxoid Vaccination: No Hx Influenza Vaccination: No Hx Pneumococcal Vaccination: No Review Of Systems Except As Marked, All Systems Reviewed And Found Negative. Constitutional: Negative for: Fever, Chills ENT: Negative for: Mouth Swelling, Throat Swelling Respiratory: Negative for: Shortness of Breath Gastrointestinal: Negative for: Nausea, Vomiting Skin: Positive for: Rash (to forearms and face), Other (Itching) Neurological: Negative for: Weakness, Numbness, Incoordination, Headache Physical Exam - Physical Exam Appears: Non-toxic, No Acute Distress Skin: Warm, Dry, Rash (erythema and excoriations to bilateral forearms) Head: Atraumatic, Normacephalic Eye(s): bilateral: PERRL, EOMI, Other (Periorbital erythema and edema surrounding eyes) Oral Mucosa: Moist Tongue: Normal Appearing, No Swelling Lips: Normal Appearing, No Swelling Throat: Normal, Other (Airway is patent) Neck: Normal ROM, Supple Chest: Symmetrical Cardiovascular: Rhythm Regular Respiratory: No Accessory Muscle Use, No Rhonchi, No Wheezing, Other (No respiratory distress, lungs are clear bilaterally) Extremity: Bilateral: Atraumatic, Normal ROM Neurological/Psych: Oriented x3, Normal Speech, Normal Motor, Normal Sensation ED Course And Treatment O2 Sat by Pulse Oximetry: 99 (RA) Pulse Ox Interpretation: Normal Medical Decision Making Medical Decision Making: Plan: Pepcid, Prednisone, and Benadryl given in the ED. On reevaluation patient reports he feels better after treatment. Patient will be discharged home with prescriptions for PO steroid and Benadryl. Disposition Counseled Patient/Family Regarding: Diagnosis, Need For Followup, Rx Given - Disposition Referrals: Jhon Hillman MD [Staff Provider] - Disposition: HOME/ ROUTINE Disposition Time: 10:32 Condition: STABLE Prescriptions: DiphenhydrAMINE [Benadryl] 25 mg PO TID #9 cap Prednisone [Deltasone] 60 mg PO DAILY #9 tablet Instructions: Poison Yana, Contact Dermatitis (DC) Forms: Vite (German), Gen Discharge Inst German - POA Present On Arrival: None - Clinical Impression Clinical Impression: Contact dermatitis - Scribe Statement The provider has reviewed the documentation as recorded by the Nikkyibandreas Hogue Provider Attestation: All medical record entries made by the Nikkyibe were at my direction and personally dictated by me. I have reviewed the chart and agree that the record accurately reflects my personal performance of the history, physical exam, medical decision making, and the department course for this patient. I have also personally directed, reviewed, and agree with the discharge instructions and disposition.
== END 2018-07-10 10:37 | disposition home or self-care (01) ==
LOC: C.ER 09:02
DX: L25.9 Unspecified contact dermatitis, unspecified cause (principal)

== ENCOUNTER 2018-08-08 14:41 | Emergency (ER) | payer OTHER ==
[2018-08-08 14:41] VITALS: BMI 25.7
[2018-08-08 15:24] VITALS: BP 118/77; PULSE 81; RESP 20; TEMP 98.6; O2SAT 96
--- NOTE | 2018-08-08 16:23 | C.PDOC ---
History Of Present Illness The patient reports cough which is associated within runny nose over the last week. Denies chest pain, SOB, numbness, weakness, vomiting, diarrhea, or travel. Time Seen by Provider: 08/08/18 15:39 Chief Complaint (Nursing): Flu-like Symptoms History Per: Patient History/Exam Limitations: no limitations Onset/Duration Of Symptoms: Persistent Current Symptoms Are (Timing): Still Present Recent travel outside of the [place]: No Past Medical History Vital Signs: Last Vital Signs Temp 98.6 F 08/08/18 15:18 Pulse 81 08/08/18 15:18 Resp 20 08/08/18 15:18 BP 118/77 08/08/18 15:18 Pulse Ox 96 08/08/18 15:18 - Medical History PMH: Gastritis, HTN (denies) Denies: Chronic Kidney Disease - [facility] Procedures ENDOSC POLYPECTOMY OF LG INTEST (01/23/15) OTHER SKIN & SUBQ I D (08/05/13) Family History: States: No Known Family Hx - Social History Hx Tobacco Use: No Hx Alcohol Use: Yes Hx Substance Use: No - Immunization History Hx Tetanus Toxoid Vaccination: No Hx Influenza Vaccination: No Hx Pneumococcal Vaccination: No Review Of Systems Constitutional: Negative for: Fever, Weakness Eyes: Negative for: Pain ENT: Negative for: Ear Pain Cardiovascular: Negative for: Chest Pain Respiratory: Positive for: Cough. Negative for: Shortness of Breath, SOB with Excertion, Pleuritic Pain, Wheezing Gastrointestinal: Negative for: Nausea, Vomiting Genitourinary: Negative for: Dysuria Musculoskeletal: Negative for: Neck Pain Skin: Negative for: Rash Neurological: Negative for: Weakness, Numbness Physical Exam - Physical Exam Appears: Non-toxic, No Acute Distress Skin: Normal Color, Warm, No Rash Head: Atraumatic, Normacephalic Eye(s): bilateral: Normal Inspection, PERRL, EOMI Ear(s): Bilateral: Normal Oral Mucosa: Moist Throat: No Erythema, No Exudate, No Drooling Neck: Normal ROM, Supple Chest: Symmetrical, No Tenderness Cardiovascular: Rhythm Regular, No Friction Rub, No Murmur Respiratory: Normal Breath Sounds, No Rales, No Rhonchi, No Stridor, No Wheezing Gastrointestinal/Abdominal: Bowel Sounds, Soft, No Tenderness Back: Normal Inspection, No CVA Tenderness Extremity: Normal ROM, No Swelling Neurological/Psych: Oriented x3 Gait: Steady ED Course And Treatment O2 Sat by Pulse Oximetry: 96 (on RA) Pulse Ox Interpretation: Normal Disposition - Disposition Referrals: Jhon Hillman MD [Staff Provider] - Disposition: HOME/ ROUTINE Disposition Time: 16:21 Condition: FAIR Additional Instructions: Follow up with the medical doctor within 1-2 days. Return if worsened. Prescriptions: Ibuprofen [Motrin] 1 tab PO TID PRN #30 tab PRN Reason: Pain Loratadine [Claritin] 10 mg PO DAILY #10 tab predniSONE [Prednisone] 10 mg PO BID #10 tab Instructions: Viral Upper Respiratory Infection, Adult (DC) Forms: [employer] ([place]er) Print Language: FRISIAN - Clinical Impression Clinical Impression: Upper respiratory infection
== END 2018-08-08 16:40 | disposition home or self-care (01) ==
LOC: C.ER 14:41
DX: J06.9 Acute upper respiratory infection, unspecified (principal)

== ENCOUNTER 2018-11-03 12:14 | Emergency (ER) | payer OTHER | END 2018-11-03 14:40 | disposition home or self-care (01) | LOC: C.ER 12:14 ==